=== PATIENT | female | born 1945 | race Caucasian/White ===

== ENCOUNTER 2017-02-25 13:30 | Emergency (ER) | payer MEDICARE, BC ==
[~2017-02-25 13:30] MED LIST: AMB5 PO; KLONO1 PO; MAX25 PO; NSAIDS; PAXIL30 MG PO; PCET PO; PRILO PO; RITALIN20 PO; T PO; ZOFRAN4 PO
== END 2017-02-25 17:31 | disposition home or self-care (01) ==
LOC: ER 13:30
DX: S32.591A Other specified fracture of right pubis, initial encounter for closed fracture (principal); S32.491A Other specified fracture of right acetabulum, initial encounter for closed fracture; F32.9 Major depressive disorder, single episode, unspecified; F41.9 Anxiety disorder, unspecified; Z88.1 Allergy status to other antibiotic agents; Z88.8 Allergy status to other drugs, medicaments and biological substances; Z79.899 Other long term (current) drug therapy; W19.XXXA Unspecified fall, initial encounter
CPT/HCPCS: 73502-RT; 99284

== ENCOUNTER 2017-04-13 20:55 | Emergency (ER) | payer MEDICARE, BC ==
--- NOTE | ~2017-04-13 | EHP ---
ER History and Physical [place] [id number] [facility] [place]. [address] NAME: AMANDA OGLESBY : 47 STATUS : REG ER PAT#: [id number] AGE: 72 ADM/REG DATE : 04/13/17 MR#: [id number] REPORT SERV DATE: 04/14/17 DICTATED BY: MALIA MENJIVAR DATE: 04/14/17 REPORT STATUS : Draft TRANSCRIBED BY: ATUL DATE: 04/14/17 ADDENDUM: I saw this patient in sign-out from Dr. Estefany Johns, awaiting results of CT of her brain. You can see those results on her chart. I did have a long discussion with Ms. Oglesby. Her blood pressure has remained fairly normal. Her history is a little more complicated than I originally understood. A couple of weeks ago, she had a fall which resulted in what sounds like some type of pelvic fracture. It was not a hip fracture, but a pelvic fracture. She did see Dr. Mcmahon for that injury and asked for physical therapy per the patient and was told that she was not going to receive any physical therapy and that she needed to just rest. She had someone come and evaluate her from [facility], who suggested that she have therapy to increase her mobility and Dr. Mcmahon would not agree to the therapy and said he would see her in two weeks' time for followup, so she has that ongoing hip problem. It is her right pelvic area that is bothering her. Since her fall on in which she had a negative brain scan, she had another negative brain scan here. It appears that she has postconcussive syndrome as she describes symptoms of headache. She has waves of nausea and some dizziness. She does not appear to have any ataxia, any greater than what she had previous which was secondary to the functional ataxia from the pelvic injury. I did offer her admission to the hospital which would likely result in a rehab stay for her hip as opposed to any of the symptoms she arrived in the hospital and she is unwilling to stay in the hospital at this time. She denies any complaints at the time of my evaluation. I am going to refer her to Physical Therapy for evaluation and mobility and also have her follow up with her physician. Her condition at time of my dictation is stable. CMR/MODL Malia Menjivar M.D. / [id number] CC: Jalyn Franco M.D.
[2017-04-13 23:52] LABS: BASOPHILS 0.2 %; BASOPHILS ABSOLUTE 0.02 10/3/uL (0.0-0.16); EOSINOPHILS 0 %; HEMATOCRIT 33.7 % (36.0-48.0); HEMOGLOBIN 11.7 g/dL (12.0-16.0); IMMATURE GRANULOCYTES 0.1 %; IMMATURE GRANULOCYTES ABSOLUTE 0.01 10/3/uL (0.0-0.11); LYMPHOCYTES 6.8 %; LYMPHOCYTES ABSOLUTE 0.56 10/3/uL (0.67-4.30); MANUAL DIFF NO %; MEAN CORPUS HGB CONC 34.7 g/dL (32.0-36.0); MEAN CORPUSCULAR HEMOGLOB 32.9 pg (26.0-34.0); MEAN CORPUSCULAR VOLUME 94.7 fL (80-100); MEAN PLATELET VOLUME 9.5 fL (9.2-13.0); MONOCYTES 3.3 %; MONOCYTES ABSOLUTE 0.27 10/3/uL (0.21-1.20); NEUTROPHILS 89.6 %; NEUTROPHILS ABSOLUTE 7.39 10/3/uL (2.02-8.40); PLATELET COUNT 287 10/3/uL (150-400); RBC DISTRIBUTION WIDTH 14.3 % (12.0-16.0); RED CELL COUNT 3.56 10/6/uL (4.0-5.6); WHITE BLOOD CELLS 8.3 10/3/uL (4.5-10.5)
[2017-04-14] LABS: INTERNATIONAL NORMAL RATI 0.9 UNITS (-); PROTIME (NOT ORD) 12.5 SEC (12.0-14.5)
[2017-04-14 00:02] LABS: PARTIAL THROMBO TIME 22.2 SEC (22.5-37.2)
[2017-04-14 00:10] LABS: A/G RATIO 1.4 (0.7-1.9); ALKALINE PHOSPHATASE 99 U/L (45-117); BUN (BLOOD UREA NITROGEN) 8 MG/DL (6-23); CALCIUM, SERUM 9.3 MG/DL (8.5-10.4); CHLORIDE, SERUM 104 MMOL/L (96-112); CO2 (CARBON DIOXIDE) 34 MMOL/L (24-34); CREATININE 0.72 MG/DL (0.55-1.02); GFR AFRICAN AMERICAN 98 ML/MIN (>=60); GFR NON AFRICAN AMERICAN 84 ML/MIN (>=60); GLOBULIN 2.8 G/DL (2.5-4.1); GLUCOSE, SERUM 139 MG/DL (60-99); POTASSIUM, SERUM 4.4 MMOL/L (3.5-5.3); SGOT(AST) 30 U/L (5-40); SGPT(ALT) 22 U/L (5-65); SODIUM, SERUM 142 MMOL/L (135-148); TOTAL BILIRUBIN 0.6 MG/DL (0-1.2); TOTAL PROTEIN 6.8 G/DL (6.0-8.5); TROPONIN I 0.02 NG/ML (<0.05)
[2017-04-14 01:42] LABS: ASCORBIC ACID (UR NOT ORDER) NEG (NEG); BILIRUBIN, URINE NEGATIVE (NEG); ER URINALYSIS TAT 0 Hrs 00 Mins; KETONE, URINE 20 MG/DL (NEG); LEUKOCYTE ESTERASE(NOT OR SMALL (NEG); NITRITE (URINE) NEG (NEG); WBC (NOT ORDERED) (RFLEX) 5 (0-5)
== END 2017-04-14 04:48 | disposition home or self-care (01) ==
LOC: ER 20:55
PROVIDERS: Emergency Medicine
DX: F07.81 Postconcussional syndrome (principal); I16.0 Hypertensive urgency; R55 Syncope and collapse; F32.9 Major depressive disorder, single episode, unspecified; F41.9 Anxiety disorder, unspecified; K21.9 Gastro-esophageal reflux disease without esophagitis; Z88.5 Allergy status to narcotic agent; Z88.8 Allergy status to other drugs, medicaments and biological substances; Z88.1 Allergy status to other antibiotic agents; Z79.899 Other long term (current) drug therapy
CPT/HCPCS: 70450; 71010; 80053; 81001; 84484; 85025; 85610; 85730; 87077; 87086; 87186; 93005; 96374; 96375; 99285; J0360; J1885; J2405